=== PATIENT | female | born 1950 | race Caucasian/White ===

== ENCOUNTER → 2024-06-23 08:36 | Outpatient (REF) | payer OTHER, SELFPAY | LOC: RAD 08:36 | PROVIDERS: ATTENDING PHYSICIAN Surgery; FAMILY PHYSICIAN Family Medicine | DX: N20.0 Calculus of kidney (principal) | CPT/HCPCS: 74176 ==

== ENCOUNTER → 2024-07-14 09:32 | Outpatient (REF) | payer OTHER, SELFPAY | LOC: RAD 09:32 | PROVIDERS: ATTENDING PHYSICIAN Podiatrist Foot Surgery; FAMILY PHYSICIAN Student in an Organized Health Care Education/Training Program | DX: M06.9 Rheumatoid arthritis, unspecified (principal) | CPT/HCPCS: 72050 ==

== ENCOUNTER 2025-04-02 18:42 | Emergency (ER) | payer OTHER, SELFPAY ==
[2025-04-02 18:46] VITALS: BP 157/86
[2025-04-02 19:12] VITALS: BP 124/52
[2025-04-02 19:14] VITALS: BP 124/52; BMI 29.1
[2025-04-02 19:38] LABS: Hematocrit 37.2 % (37.0-47.0); Hemoglobin 12.9 g/dL (12.0-16.0); Mean Corp Hgb Conc. 34.7 g/dL (33.0-37.0); Mean Corpuscular Hgb 29.1 pg (27.0-31.0); Mean Corpuscular Volume 83.8 fL (81.0-99.0); Mean Platelet Volume 10.5 fL (7.4-10.4); Platelet Count 150 10^3/uL (130-400); Red Blood Cell Count 4.44 10^6/uL (4.20-5.40); Red Cell Dist. Width 13.4 % (11.5-14.5); White Blood Cell Count 4.2 10^3/uL (4.8-10.8)
[2025-04-02 20:00] VITALS: BP 141/68
[2025-04-02 20:00] LABS: Blood Urea Nitrogen 30 mg/dl (7-17); Calcium 9.1 mg/dl (8.4-10.2); Carbon Dioxide 27 mmol/L (22-30); Chloride 110 mmol/L (98-107); Estimated Creatinine Clearance 52 ml/min; Glucose 96 mg/dl (70-99); Potassium 3.7 mmol/L (3.5-5.1); Sodium 142 mmol/L (135-145); eGFR 59.49
--- NOTE | 2025-04-02 20:21 | ED.GENMED ---
History of Present Illness
General
Chief Complaint: Skin Problem
Time Seen by Provider: 04/02/25 19:10
History of Present Illness
History of Present Illness:
Note:
CHIEF COMPLAINT(S)
- Generalized swelling and itchiness.
HISTORY OF PRESENT ILLNESS
The patient is a 74-year-old female who presents with generalized swelling and itchiness experienced after waking up. The swelling is noted primarily in her hands and toes, with accompanying itchiness described as 'moving all over the place.' This
morning, her spouse observed that the patient appeared considerably more swollen, with a reddened face. She took diphenhydramine prior to this examination, which induced sleepiness. The day before the onset of symptoms, she consumed a
raspberry-flavored lemonade, a new exposure. The patient denied recent exposure to new animals, soaps, or detergents, but did mention a recent family gathering with a guests dog present.
The patient has a history of similar facial swelling in response to ondansetron. She reports waking up with insect bites previously and has an ship superintendent scheduled. The patient confirmed no recent difficulty breathing, chest tightness, or
difficulty swallowing and no awareness of any ticks on her body. She also has a known heart murmur, followed by a building construction teacher in recent years.
PHYSICAL EXAM
- General: Patient appears well, in no acute distress.
- Skin: Small punctate maculopapular lesions noted on the right and left upper extremities, sparser lesions suggestive of insect bites without vesicles or petechiae. Mild infraorbital edema observed. No oropharyngeal edema.
- Respiratory: Clear to auscultation bilaterally.
- Cardiovascular: Regular rate and rhythm with a prominent systolic murmur known to the patient.
- Neuro: AO x 3
- Nursing notes reviewed and vital signs reviewed.
PLAN
- Order basic laboratory tests to check for potential kidney issues or electrolyte imbalances.
- Administer a single dose of steroids to address systemic allergic response.
- Suggest considering furniture replacement as a possible solution to unidentified triggers for allergic reactions.
- Initiate extermination measures to target and eliminate potential insect sources.
DIFFERENTIAL DIAGNOSIS
The Differential Diagnosis includes, in no particular order and is not limited to:
1. Allergic reaction
2. Angioedema
3. Contact dermatitis
4. Insect bite hypersensitivity
5. Serum sickness-like reaction
6. Urticaria
7. Infectious exposure (e.g., from insect vectors)
8. Drug-induced reaction (consider other medications)
9. Autoimmune condition (e.g., lupus)
10. Idiopathic anaphylaxis
CARE-UPDATE
04/02/25 - 20:21
- CBC and BMP results are unremarkable.
- Diagnosis: Acute systemic reaction attributed to multiple insect bites.
- Plan: Administer a single dose of corticosteroids in the emergency department for symptomatic relief.
- Discharge instructions: Advise patient to continue with non-sedating antihistamines like cetirizine or fexofenadine for ongoing symptom management.
- Additional recommendation: Address and manage patients living environment to prevent further insect bites.
Disposition:
DIAGNOSIS
- Acute systemic reaction attributed to multiple insect bites (ICD-10: T78.40XA).
SUMMARY OF ENCOUNTER
The patient, a 74-year-old female, presented to the emergency department with generalized swelling and itchiness observed after waking up. Notable areas of swelling included her hands and toes, spreading to a reddened face. The symptoms started
after consuming new raspberry-flavored lemonade and following recent insect bites. She had taken diphenhydramine which caused sleepiness. In the ED, she received a dose of corticosteroids to address a presumed systemic allergic reaction to multiple
insect bites, as based on her history and presentation. Family history and previous reactions to medications, such as ondansetron, were considered, although no severe systemic responses were reported at this time.
DISPOSITION
Discharge.
EMERGENCY TREATMENTS ADMINISTERED
- Single dose of corticosteroids.
PLAN
- Administer a single dose of corticosteroids in the emergency department for symptomatic relief.
- Recommend continuation of non-sedating antihistamines like cetirizine or fexofenadine at home.
- Advise primary care follow-up for ongoing management and evaluation.
- Suggest measures for addressing and treating the patients living environment to prevent further insect bites, such as scheduling extermination.
INDEPENDENT INTERPRETATION OF TESTS
My independent interpretation of CBC and BMP results is that they were unremarkable, indicating no acute infection or electrolyte imbalance contributing to her symptoms.
PATIENT EDUCATION AND COUNSELING
The patient was informed about the nature of her condition as a likely allergic reaction to insect bites. Advice was given on the importance of environmental management and continuous monitoring for any escalation in symptoms like difficulty
breathing or swallowing. The patient was instructed on the usage of non-sedating antihistamines for future relief of similar symptoms.
FOLLOW-UP INSTRUCTIONS
- Follow up with primary care provider for further evaluation and management.
- Ensure follow-up with an ship superintendent or pest control to address potential insect sources at home.
MEDICATION RECONCILIATION
- Administered single dose of corticosteroids in the ED.
- Prescribed continuation of non-sedating antihistamines like cetirizine or fexofenadine for ongoing symptoms.
MEDICAL DECISION MAKING
Number and Complexity of Problems Addressed: The patients presentation involved evaluating both acute allergic manifestations linked to insect bites and considering potential chronic environmental factors. Differential diagnosis included allergic
reaction and insect bite hypersensitivity, affecting diagnostic options.
Data: Conducted CBC and BMP tests, analyzed results indicating no acute abnormalities.
Risk: Considerations for socially driven determinants impacted care, such as exposure to environmental triggers at her current residence. The decision to not consider hospitalization was based on lack of systemic symptoms like respiratory distress.
Phy Exam
Physical Exam
Physical Exam:
.
Course
Orders/Labs/Results
Orders:
Orders
04/02/25 19:29
Basic Metabolic Panel Urgent
Complete Blood Count/No Diff Urgent
04/02/25 20:24
Dexamethasone Pf [Decadron] 10 mg PO NOW STA
Abnormal Lab Results
04/02/25
19:29
WBC 4.2 L 10^3/uL
(4.8-10.8)
MPV 10.5 H fL
(7.4-10.4)
Chloride 110 H mmol/L
(98-107)
BUN 30 H mg/dl
(7-17)
04/02/25 19:29
04/02/25 19:29
Vital Signs
Initial and Last Documented VS:
Initial Vital Signs
Temp Pulse Resp BP Pulse Ox
98.0 F 74 18 157/86 98
04/02/25 18:46 04/02/25 18:46 04/02/25 18:46 04/02/25 18:46 04/02/25 18:46
Last Documented Vital Signs
Temp Pulse Resp BP Pulse Ox
98.0 F 68 29 141/68 98
04/02/25 18:46 04/02/25 20:15 04/02/25 20:15 04/02/25 20:00 04/02/25 20:15
*Critical Care Note
Total Time (30-74mins, 75-104mins- exclusive of procedures): Not Applicable
ED Attending Note
-
Portions of this chart may have been created with voice recognition software.� Occasional wrong word or��sound alike� substitutions may have occurred due to the inherent limitations of voice recognition software.
Discharge Plan
Departure
Patient Disposition: Home (Routine Discharge)
Date of Disposition: 04/02/25
Time of Disposition: 20:23
Patient with high blood pressure during this ER visit?: No
Discharge Problem:
Allergic reaction
Instructions: Allergic reaction - ED discharge instructions
Referrals:
Billy Watson DO [Family Provider, Family Practice]
Activity Restrictions/Additional Instructions:
Use Zyrtec or Naheed as alternatives to help your itching as opposed to Benadryl due to sedating effects of Benadryl
Interventions
Interventions:
*Risk Screen - Suicide Last Done: 04/02/25 18:46
*General Assessment Last Done: 04/02/25 20:40
*Neglect/Abuse Screening Last Done: 04/02/25 18:46
*ED- Fall Risk Assessment Last Done: 04/02/25 20:40
*ED COVID-19 Vaccine History Last Done: 04/02/25 20:40
*Nursing Disposition Last Done: 04/02/25 20:40
ED-Skin Assessment Last Done: 04/02/25 19:16
Discharge Date and Time
Discharge Date/Time: 04/02/25 20:41
Print Language: PALAUAN
[2025-04-02] MEDS: DECADRON 10 MG PO (20:37)
== END 2025-04-02 20:41 | disposition home or self-care (01) ==
LOC: EMR 18:42
PROVIDERS: Physician Assistant; EMERGENCY PHYSICIAN Emergency Medicine; FAMILY PHYSICIAN Student in an Organized Health Care Education/Training Program
DX: M79.89 Other specified soft tissue disorders (principal); L29.9 Pruritus, unspecified; L98.8 Other specified disorders of the skin and subcutaneous tissue; T78.40XA Allergy, unspecified, initial encounter; W57.XXXA Bitten or stung by nonvenomous insect and other nonvenomous arthropods, initial encounter; R01.1 Cardiac murmur, unspecified; Z88.6 Allergy status to analgesic agent; Z88.5 Allergy status to narcotic agent; Z88.8 Allergy status to other drugs, medicaments and biological substances
CPT/HCPCS: 99283; 80048; 85027